=== PATIENT | female | born 1960 | race Caucasian/White ===

== ENCOUNTER 2020-02-17 10:08 | Emergency (ER) | payer OTHER, MEDICARE ==
[2020-02-17 11:05] LABS: ABSOLUTE BASOPHILS # (AUTO) 0.1 10^3/uL (0.0-0.2); ABSOLUTE LYMPHOCYTES (AUTO) 0.8 10^3/uL (0.5-4.7); ABSOLUTE MONOCYTES (AUTO) 0.8 10^3/uL (0.1-1.4); ABSOLUTE NEUT (AUTO) 11.3 10^3/uL (1.7-8.2); BASOPHILS % (AUTO) 0.4 % (0-2); HEMATOCRIT 38.5 % (36.0-47.0); LYMPHOCYTES % (AUTO) 6.2 % (13-45); MEAN CORPUSCULAR HGB CONC 33.7 g/dL (32.0-36.0); MEAN CORPUSCULAR VOLUME 83 fl (80-97); MONOCYTES % (AUTO) 5.9 % (3-13); PLATELET COUNT 239 10^3/uL (150-450); RED BLOOD COUNT 4.63 10^6/uL (3.72-5.28); RED CELL DISTRIBUTION WIDTH 14.2 % (11.5-14.0); SEGMENTED NEUTROPHILS % (AUTO) 87.5 % (42-78); TOTAL CELLS COUNTED % (AUTO) 100 %; WHITE BLOOD COUNT 12.9 10^3/uL (4.0-10.5)
[2020-02-17 11:14] LABS: ALBUMIN 4.2 g/dL (3.5-5.0); ALKALINE PHOSPHATASE 82 U/L (38-126); ANION GAP 12 (5-19); ASPARTATE AMINO TRANSFERASE 16 U/L (14-36); BILIRUBIN,DIRECT 0.3 mg/dL (0.0-0.4); BILIRUBIN,TOTAL 0.7 mg/dL (0.2-1.3); BLOOD UREA NITROGEN 10 mg/dL (7-20); CALCIUM 9.9 mg/dL (8.4-10.2); CARBON DIOXIDE 24 mmol/L (22-30); CHLORIDE 95 mmol/L (98-107); CREATINE KINASE 41 U/L (30-135); GLUCOSE 110 mg/dL (75-110); POTASSIUM 4.1 mmol/L (3.6-5.0); TOTAL PROTEIN 7.1 g/dL (6.3-8.2)
[2020-02-17 11:28] LABS: CREATINE KINASE MB 0.37 ng/mL (<4.55)
[2020-02-17 11:29] LABS: TROPONIN I < 0.012 ng/mL
--- NOTE | 2020-02-17 11:42 | RADIOLOGY REPORT (SQ) ---
EXAM DESCRIPTION: CHEST SINGLE VIEW IMAGES COMPLETED DATE/TIME: 02/17/2020 11:12 am REASON FOR STUDY: chest pain, shortness of breath COMPARISON: None. EXAM PARAMETERS: NUMBER OF VIEWS: One view. TECHNIQUE: Single frontal radiographic view of the chest acquired. RADIATION DOSE: NA LIMITATIONS: None. FINDINGS: LUNGS AND PLEURA: No opacities, masses or pneumothorax. No pleural effusion. MEDIASTINUM AND HILAR STRUCTURES: No masses. Contour normal. HEART AND VASCULAR STRUCTURES: Heart normal in size. Normal vasculature. BONES: No acute findings. HARDWARE: None in the chest. Cervical fusion hardware. OTHER: No other significant finding. IMPRESSION: NO ACUTE RADIOGRAPHIC FINDING IN THE CHEST. TECHNICAL DOCUMENTATION: JOB ID: [id number] 2010 [employer]- All Rights Reserved Reading location - IP/workstation name: [email or web address]
--- NOTE | 2020-02-17 12:08 | ER Document Report ---
ED General - General Chief Complaint: Shortness Of Breath Stated Complaint: SHORT OF BREATH,VOMITING,FEVER Time Seen by Provider: 02/17/20 11:00 Mode of Arrival: Wheelchair Information source: Patient Notes: 59-year-old female patient with history of fibromyalgia presented to the emergency department with shortness of breath, lack of appetite, nausea, vomiting and fever. She states she has had a few episodes of diarrhea. She did recently travel from [place]. Denies any covid exposure that she is aware of. Patient reports she cannot hold dont her chronic pain. - Related Data Allergies/Adverse Reactions: No Known Allergies Allergy (Unverified 02/17/20 12:49) Past Medical History - General Information source: Patient - Social History Smoking Status: Never Smoker Frequency of alcohol use: None Drug Abuse: None Family History: None - Medical History Medical History: Other - fibromyalgia Review of Systems - Review of Systems Constitutional: See HPI EENT: No symptoms reported Cardiovascular: No symptoms reported Respiratory: See HPI Gastrointestinal: See HPI Genitourinary: See HPI Female Genitourinary: No symptoms reported Musculoskeletal: No symptoms reported Skin: No symptoms reported Hematologic/Lymphatic: No symptoms reported Neurological/Psychological: See HPI Physical Exam - Vital signs Vitals: Temp Resp BP Pulse Ox 97.5 F 16 155/78 H 99 02/17/20 10:28 02/17/20 10:28 02/17/20 10:28 02/17/20 10:28 - Notes Notes: PHYSICAL EXAMINATION: GENERAL: Well-appearing, well-nourished and in no acute distress. HEAD: Atraumatic, normocephalic. EYES: Pupils equal round and reactive to light, extraocular movements intact, conjunctiva are normal. ENT: Nares patent, oropharynx clear without exudates. Moist mucous membranes. NECK: Normal range of motion, supple without lymphadenopathy LUNGS: Breath sounds clear to auscultation bilaterally and equal. No wheezes rales or rhonchi. HEART: Regular rate and rhythm without murmurs ABDOMEN: Soft, nontender, nondistended abdomen. No guarding, no rebound. No masses appreciated. Female : deferred Musculoskeletal: Normal range of motion, no pitting or edema. No cyanosis. NEUROLOGICAL: Cranial nerves grossly intact. Normal speech, normal gait. Normal sensory, motor exams PSYCH: Normal mood, normal affect. SKIN: Warm, Dry, normal turgor, no rashes or lesions noted. Course - Re-evaluation Re-evalutation: Patient appears well, nontoxic, she reports she feels improved after administration of medications here in the emergency department. COVID-19 swab obtained. Patient educated on the need to self quarantine. ED return preca utions discussed, patient verbalized understanding agreement same. - Vital Signs Vital signs: Temp Pulse Resp BP Pulse Ox 98.1 F 87 18 156/81 H 100 02/17/20 16:43 02/17/20 16:43 02/17/20 16:43 02/17/20 16:43 02/17/20 16:43 - Laboratory Result Diagrams: 02/17/20 10:42 02/17/20 10:42 Laboratory results interpreted by me: 02/17/20 02/17/20 10:42 10:42 WBC 12.9 H RDW 14.2 H Lymph % (Auto) 6.2 L Absolute Neuts (auto) 11.3 H Seg Neutrophils % 87.5 H Sodium 131.2 L Chloride 95 L - Diagnostic Test Radiology reviewed: Image reviewed, Reports reviewed - EKG Interpretation by Me EKG shows normal: Sinus rhythm Rate: Normal - rate 72, normal axis, normal intervals Discharge - Discharge Clinical Impression: Nausea vomiting and diarrhea, Shortness of breath Condition: Stable Disposition: HOME, SELF-CARE Additional Instructions: Your work-up today was generally reassuring. Your COVID-19 testing is pending, this will take approximately 2 days to come back, someone will contact you with the results. Please self quarantine until you have received your results. Return to the emergency department if you have worsening symptoms such as severe shortness of breath or you are unable to urinate. Prescriptions: Promethazine HCl [Phenergan 25 mg Tablet] 1 - 2 tab PO Q6H PRN #15 tablet PRN Reason:
--- NOTE | 2020-02-17 12:27 | EKG REPORT ---
SEVERITY:- ABNORMAL ECG - SINUS RHYTHM PROBABLE LEFT ATRIAL ABNORMALITY PROBABLE ANTEROSEPTAL INFARCT, AGE INDETERM BORDERLINE T ABNORMALITIES, INFERIOR LEADS LATERAL LEADS ARE ALSO INVOLVED : Confirmed by: Hipolito Mckeon MD 17-Feb-2020 12:26:57
[2020-02-17] MEDS ORDERED: PROMETHAZINE HCL INJ 25 MG/1 ML VIAL IV ONE (12:32)
[2020-02-17] MEDS ORDERED: NORMAL SALINE 1000 ML 1,000 ML IV ONE (12:33)
[2020-02-17] MEDS ORDERED: HYDROCODONE/ACETAMINOPHEN 5-325 MG TABLET PO ONE (15:20)
[2020-02-17] MEDS ORDERED: METOCLOPRAMIDE HCL ORAL SOLN 10 MG/10 ML UDCUP PO ONE (15:20)
[2020-02-17 17:02] VITALS: BP 156/81
== END 2020-02-17 16:43 | disposition home or self-care (01) ==
LOC: ER 10:08
DX: R11.2 Nausea with vomiting, unspecified (principal); R19.7 Diarrhea, unspecified; R06.02 Shortness of breath; R63.0 Anorexia; R50.9 Fever, unspecified; Z20.828 Contact with and (suspected) exposure to other viral communicable diseases
CPT/HCPCS: 93005; 99285; 96361; 96374; 36415; 87040; 82553; 82550; 83605; 85025; 87635; 80053; 84484; 71045; 93010; J2550; J7030; C9803